=== PATIENT | male | born 1940 | race Caucasian/White ===

== ENCOUNTER 2019-04-04 07:11 | Emergency (ER) | payer MEDICARE, BC ==
[~2019-04-04] VITALS: Ht 177.8 cm; Wt 97.7 kg
--- NOTE | 2019-04-04 07:31 | ED General ---
General Stated Complaint: LOW BP History of Present Illness Date Seen by Provider: Apr 04, 2019 Time Seen by Provider: 07:36 Initial Comments Patient is a 78-year-old male with past medical history of symptomatic bradycardia and subsequent pacemaker placement 10 years ago in [place]. He also has hypertension. He does take antihypertensive medications and aspirin daily. He comes to the ER today stating that his pacemaker has been failing due to a low battery. He had an interrogation completed last week and according to the anna marie jones this was revealing for 1 failed lead, the atrial, as well as a failing battery. Patient has been having ongoing intermittent symptoms of dizziness, lightheadedness, nausea. He had been evaluated by his PCP for these and had plans to see the cardiothoracic surgeon in [place] this coming week to schedule a new pacemaker placement. The patient has however been having some symptoms described above. Today, he felt to nauseated, lightheaded, and dizzy to function so he came to the ER. He does not have chest pain or shortness of breath but he does feel easily fatigued. No vomiting. No additional illness or viral symptoms. Allergies and Home Medications Allergies Coded Allergies: Sulfa (Sulfonamide Antibiotics) (Verified Allergy, Unknown, 04/04/19) Patient Home Medication List Home Medication List Reviewed: Yes Review of Systems Review of Systems Constitutional: no symptoms reported Respiratory: no symptoms reported Cardiovascular: no symptoms reported Gastrointestinal: nausea Genitourinary: no symptoms reported Musculoskeletal: no symptoms reported Skin: no symptoms reported Psychiatric/Neurological: No Symptoms Reported All Other Systems Reviewed Negative Unless Noted: Yes Physical Exam Vital Signs Vital Signs - First Documented 04/04/19 07:15 Temp 36.7 Pulse 65 Resp 18 B/P (MAP) 150/84 (106) Pulse Ox 97 O2 Delivery Room Air Capillary Refill : Height, Weight, BMI Height: '" Weight: lbs. oz. 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 Norm as Tested Skin: Normal Color, Warm/Dry Progress/Results/Core Measures Suspected Sepsis SIRS Temperature: Pulse: Respiratory Rate: Laboratory Tests 04/04/19 07:40: White Blood Count 7.2 Blood Pressure / Mean: Laboratory Tests 04/04/19 07:40: Creatinine 0.86, Platelet Count 213 Results/Orders Lab Results Laboratory Tests Test 04/04/19 07:40 Range/Units White Blood Count 7.2 4.3-11.0 10^3/uL Red Blood Count 5.44 4.35-5.85 10^6/uL Hemoglobin 16.2 13.3-17.7 G/DL Hematocrit 48 40-54 % Mean Corpuscular Volume 88 80-99 FL Mean Corpuscular Hemoglobin 30 25-34 PG Mean Corpuscular Hemoglobin Concent 34 32-36 G/DL Red Cell Distribution Width 12.9 10.0-14.5 % Platelet Count 213 130-400 10^3/uL Mean Platelet Volume 11.2 H 7.4-10.4 FL Neutrophils (%) (Auto) 52 42-75 % Lymphocytes (%) (Auto) 41 12-44 % Monocytes (%) (Auto) 6 0-12 % Eosinophils (%) (Auto) 1 0-10 % Basophils (%) (Auto) 0 0-10 % Neutrophils # (Auto) 3.7 1.8-7.8 X 10^3 Lymphocytes # (Auto) 2.9 1.0-4.0 X 10^3 Monocytes # (Auto) 0.4 0.0-1.0 X 10^3 Eosinophils # (Auto) 0.1 0.0-0.3 10^3/uL Basophils # (Auto) 0.0 0.0-0.1 10^3/uL Sodium Level 140 135-145 MMOL/L Potassium Level 4.2 3.6-5.0 MMOL/L Chloride Level 102 98-107 MMOL/L Carbon Dioxide Level 26 21-32 MMOL/L Anion Gap 12 5-14 MMOL/L Blood Urea Nitrogen 13 7-18 MG/DL Creatinine 0.86 0.60-1.30 MG/DL Estimat Glomerular Filtration Rate > 60 BUN/Creatinine Ratio 15 Glucose Level 126 H 70-105 MG/DL Calcium Level 9.2 8.5-10.1 MG/DL Troponin I < 0.30 <0.30 NG/ML Pro-B-Type Natriuretic Peptide 844.6 H <75.0 PG/ML My Orders Orders - PASCUALKEM Remy DO Ed Iv/Invasive Line Start (04/04/19 07:31) Cbc With Automated Diff (04/04/19 07:31) Basic Metabolic Panel (04/04/19 07:31) Troponin I Fs (04/04/19 07:31) Probnp Fs (04/04/19 07:31) Ekg Tracing (04/04/19 07:31) Chest 1 View Ap/Pa Only (04/04/19 07:31) Ns Iv 500 Ml (Sodium Chloride 0.9%) (04/04/19 08:15) Ondansetron Injection (Zofran Injectio (04/04/19 08:15) Medications Given in ED Current Medications Medications Dose Ordered Sig/Valeria Route Start Time Stop Time Status Last Admin Dose Admin Ondansetron HCl 4 mg ONCE ONCE IVP 04/04/19 08:15 04/04/19 08:17 DC 04/04/19 08:18 4 MG Vital Signs/I&O 04/04/19 04/04/19 07:15 09:05 Temp 36.7 36.7 Pulse 65 66 Resp 18 18 B/P (MAP) 150/84 (106) 129/74 (106) Pulse Ox 97 97 O2 Delivery Room Air Room Air Capillary Refill : Progress Note : Time: 07:45 Progress Note Patient is seen and examined. Currently, no chest pain. EKG is revealing for herbert tricular paced rhythm with rate of 65. Patient complains of nausea. No shortness of breath or palpitations. Patient just underwent pacemaker interrogation last week and reportedly has failing lead as well as failing battery. He is primarily followed at [facility] by cardiology and CT surgery. Will call to request transfer to that facility both for continuity of care and for need of increased level of service. 08:15: Patient accepted for transfer to [facility]. Labs reviewed and without acute findings. Accepting physician is Dr. Graves. Room assignment and nursing report pending. Patient to be transferred via local EMS. 09:15: Patient transferred to [facility]. No acute events during the ED course. Feeling improved prior to transfer. Vitals remain stable. ECG Initial ECG Impression Date: Apr 04, 2019 Initial ECG Impression Time: 07:20 Initial ECG Rate: 65 Departure Impression Primary Impression: Dizziness Disposition: 02 XFER SHT-TRM HOSP Condition: Stable Transfer Transfer Reason: Exceeds level of care Time Spoke to Accepting Phy: 08:05 Transfer Progress Notes Patient accepted for transfer to [facility]. Accepting physician is Dr. Graves Transfer Time: 09:15 Transfer Facility: [place], [place] Method of Transfer: EMS Departure-Patient Inst. Referrals: SELF,JUNITO MORENO (PCP/Family) Primary Care Physician Patient Instructions: Dizziness, Nonvertigo, (DC) KEM GARNER DO Apr 04, 2019 07:31
[2019-04-04 07:52] LABS: BASOPHILS % (AUTO) 0 % (0-10); EOSINOPHILS % (AUTO) 1 % (0-10); HEMATOCRIT 48 % (40-54); HEMOGLOBIN 16.2 G/DL (13.3-17.7); LYMPHOCYTES % (AUTO) 41 % (12-44); MEAN CORPUSCULAR HEMOGLOBIN 30 PG (25-34); MEAN CORPUSCULAR HGB CONC 34 G/DL (32-36); MEAN CORPUSCULAR VOLUME 88 FL (80-99); MEAN PLATELET VOLUME 11.2 FL (7.4-10.4); MONOCYTES % (AUTO) 6 % (0-12); NEUTROPHILS % (AUTO) 52 % (42-75); PLATELET COUNT 213 10^3/uL (130-400); RED CELL DISTRIBUTION WIDTH 12.9 % (10.0-14.5); WHITE BLOOD COUNT 7.2 10^3/uL (4.3-11.0)
[2019-04-04 07:53] LABS: EOSINOPHILS # (AUTO) 0.1 10^3/uL (0.0-0.3); LYMPHOCYTES # (AUTO) 2.9 X 10^3 (1.0-4.0); MONOCYTES # (AUTO) 0.4 X 10^3 (0.0-1.0); NEUTROPHILS # (AUTO) 3.7 X 10^3 (1.8-7.8)
[2019-04-04 08:09] LABS: BUN/CREATININE RATIO 15; CALCIUM 9.2 MG/DL (8.5-10.1); CARBON DIOXIDE 26 MMOL/L (21-32); CHLORIDE 102 MMOL/L (98-107); CREATININE SERUM 0.86 MG/DL (0.60-1.30); GFR ESTIMATED > 60; GLUCOSE 126 MG/DL (70-105); POTASSIUM 4.2 MMOL/L (3.6-5.0); SODIUM 140 MMOL/L (135-145)
[2019-04-04] MEDS ORDERED: NS IV 500 ML 500 ML IV SCH (08:15)
[2019-04-04] MEDS ORDERED: ONDANSETRON 4 MG/2 ML (SDV) Z0FRAN IVP ONE (08:15)
--- NOTE | 2019-04-04 08:45 | Diagnostic Imaging Report ---
INDICATION: Dizziness and nausea. Near syncope. FINDINGS: Pacemaker device is present. Heart size appropriate without evidence of current failure. There is no focal alveolar infiltrate or consolidation. There is no effusion. There is no pneumothorax. No acute or suspicious osseous abnormalities are evident. IMPRESSION: 1. No radiographic evidence of an acute cardiopulmonary process. Dictated by: Dictated on workstation # [id number]
[2019-04-04 09:05] VITALS: BP 129/74
== END 2019-04-04 09:05 | disposition short-term general hospital (02) ==
LOC: ER FS 07:13
DX: R42 Dizziness and giddiness (principal); I10 Essential (primary) hypertension; Z88.2 Allergy status to sulfonamides; Z95.0 Presence of cardiac pacemaker; Z79.82 Long term (current) use of aspirin
CPT/HCPCS: 36415; 71045; 80048; 83880; 84484; 85025; 93005; 96374

== ENCOUNTER 2019-05-10 11:49 | Emergency (ER) | payer MEDICARE ==
--- OUTSIDE RECORDS SUMMARY | 2019-05-10 11:55 | XMS REPORT | Continuity of Care Document ---
Author Organization Unknown Address Unknown Phone Unavailable Allergies Active Description Code Type Severity Reaction Onset Reported/Identified Relationship to Patient Clinical Status Yes Sulfa (Sulfonamide Antibiotics) U92449 0491 Drug Allergy Unknown N/A 020 Medications There is no data. Problems Date Dx Coded Attending Type Code Diagnosis Diagnosed By 04/04/2019 GARNER KEE ROSALESIAN L Ot I10 ESSENTIAL (PRIMARY) HYPERTENSION 04/04/2019 NAYLOR DO KEM L Ot R42 DIZZINESS AND GIDDINESS 04/04/2019 [facility] KEM L Ot Z79.82 SENIOR LIVING (CURRENT) USE OF ASPIRIN 04/04/2019 NAYLOR DO KEM L Ot Z88 .2 ALLERGY STATUS TO SULFONAMIDES STATUS 04/04/2019 [facility] KEM L Ot Z95 .0 PRESENCE OF CARDIAC PACEMAKER 04/09/2019 NAYLOR DO KEM L Ot I10 ESSENTIAL (PRIMARY) HYPERTENSION 04/09/2019 NAYLOR , KEM L Ot R42 DIZZINESS AND GIDDINESS 04/09/2019 NAYLOR DO KEM L Ot Z79.82 SENIOR LIVING (CURRENT) USE OF ASPIRIN 04/09/2019 NAYLOR DO KEM L Ot Z88 .2 ALLERGY STATUS TO SULFONAMIDES STATUS 04/09/2019 NAYLOR DO KEM L Ot Z95 .0 PRESENCE OF CARDIAC PACEMAKER 04/11/2019 NAYLOR DO KEM L Ot I10 ESSENTIAL (PRIMARY) HYPERTENSION 04/11/2019 NAYLOR DO KEM L Ot R42 DIZZINESS AND GIDDINESS 04/11/2019 [facility] KEM L Ot Z79.82 SENIOR LIVING (CURRENT) USE OF ASPIRIN 04/11/2019 NAYLOR DO KEM L Ot Z88 .2 ALLERGY STATUS TO SULFONAMIDES STATUS 04/11/2019 [facility] KEM L Ot Z95 .0 PRESENCE OF CARDIAC PACEMAKER Procedures There is no data. Results Test Result Range CMP - 07/22/18 08:02 GLUCOSE 92 mg/dL 65-99 UREA NITROGEN (BUN) 14 mg/dL 7-25 CREATININE 0.80 mg/dL 0.70-1.18 eGFR NON-AFR. [place] 86 mL/min/1.73m2 > OR = 60 eGFR 99 mL/min/1.73m2 > OR = 60 BUN/CREATININE RATIO NOT APPLICABLE (calc) 6-22 SODIUM 142 mmol/L 135-146 POTASSIUM 4.6 mmol/L 3.5-5.3 CHLORIDE 106 mmol/L 98-110 CARBON DIOXIDE 28 mmol/L 20-32 CALCIUM 9.5 mg/dL 8.6-10.3 PROTEIN, TOTAL 6.9 g/dL 6.1-8.1 ALBUMIN 4.3 g/dL 3.6-5.1 GLOBULIN 2.6 g/dL (calc) 1.9-3.7 ALBUMIN/GLOBULIN RATIO 1.7 (calc) 1.0-2. 5 BILIRUBIN, TOTAL 0.6 mg/dL 0.2-1.2 ALKALINE PHOSPHATASE 57 U/L 40-115 AST 21 U/L 10-35 ALT 16 U/L - TSH - 07/22/18 08:02 TSH 1.21 mIU/L 0.40-4.50 CMP - 11/26/18 09:53 GLUCOSE 94 mg/dL 65-99 UREA NITROGEN (BUN) 14 mg/dL 7-25 CREATININE 0.77 mg/dL 0.70-1.18 eGFR NON-AFR. [place] 86 mL/min/1.73m2 > OR = 60 eGFR 100 mL/min/1.73m2 > OR = 60 BUN/CREATININE RATIO NOT APPLICABLE (calc) 6-22 SODIUM 138 mmol/L 135-146 POTASSIUM 4.4 mmol/L 3.5-5.3 CHLORIDE 102 mmol/L 98-110 CARBON DIOXIDE 28 mmol/L 20-32 CALCIUM 9.4 mg/dL 8.6-10.3 PROTEIN, TOTAL 6.6 g/dL 6.1-8.1 ALBUMIN 4.0 g/dL 3.6-5.1 GLOBULIN 2.6 g/dL (calc) 1.9-3.7 ALBUMIN/GLOBULIN RATIO 1.5 (calc) 1.0-2. 5 BILIRUBIN, TOTAL 0.5 mg/dL 0.2-1.2 ALKALINE PHOSPHATASE 59 U/L 40-115 AST 24 U/L 10-35 ALT 23 U/L 9-46 CBC - 11/26/18 09:53 WHITE BLOOD CELL COUNT 6.7 Thousand/uL 3 .8-10.8 RED BLOOD CELL COUNT 5.22 Million/uL 4.2 0-5.80 HEMOGLOBIN 15.6 g/dL 13.2-17.1 HEMATOCRIT 46.5 % 38.5-50.0 MCV 89.1 fL 80.0-100.0 MCH 29.9 pg 27.0-33.0 MCHC 33.5 g/dL 32.0-36.0 RDW 12.6 % 11.0-15.0 PLATELET COUNT 234 Thousand/uL 140-400 MPV 10.8 fL 7.5-12.5 ABSOLUTE NEUTROPHILS 4127 cells/uL 1500- 7800 ABSOLUTE LYMPHOCYTES 1977 cells/uL 850-3 900 ABSOLUTE MONOCYTES 516 cells/uL 200-950 ABSOLUTE EOSINOPHILS 40 cells/uL 15-500 ABSOLUTE BASOPHILS 40 cells/uL 0-200 NEUTROPHILS 61.6 % NRG LYMPHOCYTES 29.5 % NRG MONOCYTES 7.7 % NRG EOSINOPHILS 0.6 % NRG BASOPHILS 0.6 % NRG VITAMIN B12 - 11/26/18 09:53 VITAMIN B12 953 pg/mL 200-1100 TROPONIN I - 11/26/18 09:53 TROPONIN I <0.01 ng/mL < OR = 0.05 CBC - 01/28/19 08:12 WHITE BLOOD CELL COUNT 6.2 Thousand/uL 3 .8-10.8 RED BLOOD CELL COUNT 5.50 Million/uL 4.2 0-5.80 HEMOGLOBIN 16.5 g/dL 13.2-17.1 HEMATOCRIT 49.4 % 38.5-50.0 MCV 89.8 fL 80.0-100.0 MCH 30.0 pg 27.0-33.0 MCHC 33.4 g/dL 32.0-36.0 RDW 12.5 % 11.0-15.0 PLATELET COUNT 219 Thousand/uL 140-400 MPV 11.1 fL 7.5-12.5 ABSOLUTE NEUTROPHILS 2939 cells/uL 1500- 7800 ABSOLUTE LYMPHOCYTES 2691 cells/uL 850-3 900 ABSOLUTE MONOCYTES 465 cells/uL 200-950 ABSOLUTE EOSINOPHILS 62 cells/uL 15-500 ABSOLUTE BASOPHILS 43 cells/uL 0-200 NEUTROPHILS 47.4 % NRG LYMPHOCYTES 43.4 % NRG MONOCYTES 7.5 % NRG EOSINOPHILS 1.0 % NRG BASOPHILS 0.7 % NRG VITAMIN B12 - 01/28/19 08:12 VITAMIN B12 1056 pg/mL 200-1100 VITAMIN D, 25-H - 02/03/19 11:43 VITAMIN D,25-OH,TOTAL,IA 58 ng/mL 30-10 0 Complete blood count (CBC) with automate d white blood cell (WBC) differential - 04/04/19 07:40 Blood leukocytes automated count (number/volume) 7.2 10*3/uL 4.3-11.0 Blood erythrocytes automated count (number/volume) 5.44 10*6/uL 4.35-5.85 Venous blood hemoglobin measurement (mass/volume) 16.2 g/dL 13.3-17.7 Blood hematocrit (volume fraction) 48 % 40-54 Automated erythrocyte mean corpuscular volume 88 [ foz_us] 80-99 Automated erythrocyte mean corpuscular h emoglobin (mass per erythrocyte) 30 pg 25-34 Automated erythrocyte mean corpuscular h emoglobin concentration measurement (mass/volume) 34 g/dL 32-36 Automated erythrocyte distribution width ratio 12. 9 % 10.0- 14.5 Automated blood platelet count (count/volume) 213 10*3/uL 130-400 Automated blood platelet mean volume measurement 11.2 [foz_us] 7.4-10.4 Automated blood neutrophils/100 leukocytes 52 % 42-75 Automated blood lymphocytes/100 leukocytes 41 % 12-44 Blood monocytes/100 leukocytes 6 % 0-12 Automated blood eosinophils/100 leukocytes 1 % 0-10 Automated blood basophils/100 leukocytes 0 % 0-10 Blood neutrophils automated count (number/volume) 3.7 10*3 1.8-7.8 Blood lymphocytes automated count (number/volume) 2.9 10*3 1.0-4.0 Blood monocytes automated count (number/volume) 0. 4 10*3 0.0-1.0 Automated eosinophil count 0.1 10*3/uL 0 .0-0.3 Automated blood basophil count (count/volume) 0.0 10*3/uL 0.0-0.1 Whole blood basic metabolic panel - 03/20 08/06 07:40 Serum or plasma sodium measurement (moles/volume) 140 mmol/L 135-145 Serum or plasma potassium measurement (moles/volume) 4.2 mmol/L 3.6-5.0 Serum or plasma chloride measurement (moles/volume) 102 mmol/L 98-107 Carbon dioxide 26 mmol/L 21-32 Serum or plasma anion gap determination (moles/volume) 12 mmol/L 5-14 Serum or plasma urea nitrogen measurement (mass/volume ) 13 mg/dL 7-18 Serum or plasma creatinine measurement (mass/volume) 0.86 mg/dL 0.60-1.30 Serum or plasma urea nitrogen/creatinine mass ratio 15 NRG Serum or plasma creatinine measurement w ith calculation of estimated glomerular filtration rate > NRG Serum or plasma glucose measurement (mass/volume) 126 mg/dL 70-105 Serum or plasma calcium measurement (mass/volume) 9.2 mg/dL 8.5-10.1 TROPONIN I FS - 04/04/19 07:40 TROPONIN I FS < 0.30 <0.30 PROBNP FS 04/04/19 07:40 PROBNP FS 844.6 pg/mL <75.0 Encounters ACCT No. Visit Date/Time Discharge Status Pt. Type Provider Facility Loc./Unit Complaint [id number] 02/03/2019 09:30:00 02/03/2019 23:59: 59 CLS Outpatient [facility] [id number] 02/03/2019 09:30:00 Document Registration [id number] 01/28/2019 07:45:00 Document Registration [id number] 11/26/2018 08:45:00 Document Registration [id number] 07/22/2018 08:15:00 Document Registration [id number] 05/08/2015 13:17:02 ACT Unknown [id number] 04/04/2019 07:13:00 020 09:05:00 DIS Emergency KEM GARNER DO [facility] ER FS LOW BP
--- NOTE | 2019-05-10 12:13 | ED Abdominal Pain ---
General Chief Complaint: - Urinary Stated Complaint: ELEVATED BP Nursing Triage Note: Pain on R flank started 4 days ago. Has taken tylenol and ibuprofen for pain. Pain is currently rated at 5/10. Has hx of kidney stones. Also having high blood pressure at home. Was 203/111 prior to arrival. Sepsis Screen: No Definite Risk Source of Information: Patient Exam Limitations: No Limitations History of Present Illness Date Seen by Provider: May 10, 2019 Time Seen by Provider: 11:56 Initial Comments 78 yr old male with R flank pain for 4 days and has hx of renal stones. Pt has taken tylenol and motrin for pain. Pt has HBP and was hypertensive on admission. No chest pain or SOB and has second pacemaker for arrhythmia. Pt denies GI or PUL dx. Pt has given informed consent for diagnostic and therapeutic care. Last renal stone was years ago. Stopped smoking 40 yrs ago. Timing/Duration: 4-5 Days Severity/Quality: Moderate, Cramping, Sharp Location: RLQ, Flank Radiation: Back Activities at Onset: None Modifying Factors: Improves With Analgesics, Improves With Lying down, Improves With Resting, Improves With Urinating Associated Symptoms: Back Pain, Nausea/Vomiting Allergies and Home Medications Allergies Coded Allergies: Sulfa (Sulfonamide Antibiotics) (Verified Allergy, Unknown, 04/04/19) Patient Home Medication List Home Medication List Reviewed: Yes (no meds but will follow up with Dr Price and use ibuprofenfor pain,hydr) Review of Systems Review of Systems Constitutional: malaise, weakness EENTM: No Symptoms Reported Respiratory: No Symptoms Reported Cardiovascular: Irregular Heart Rate (has a pacemaker) Gastrointestinal: Abdominal Pain, Nausea Genitourinary: Flank Pain, Other (hx of renal stones) Musculoskeletal: back pain, muscle pain, muscle stiffness Skin: lesions (seborrheic changes left jain) Psychiatric/Neurological: Anxiety Endocrine: No Symptoms Reported Past Vybrtrq-Tsssjk-Dopfbe Hx Past Med/Social Hx: Reviewed Nursing Past Med/Soc Hx Patient Social History Alcohol Use: Denies Use Recreational Drug Use: No Smoking Status: Former Smoker Former Smoker, Quit: Feb 17, 1978 2nd Hand Smoke Exposure: No Recent Foreign Travel: No Contact w/Someone Who Travel: No Recent Infectious Disease Expo: No Recent Hopitalizations: No Seasonal Allergies Seasonal Allergies: Yes Past Medical History Surgeries: Yes Pacemaker, Transurethral Resection Respiratory: Yes Asthma Cardiac: Yes (Sick sinus syndrome) High Cholesterol, Hypertension, Irregular Heartbeat Neurological: No Genitourinary: Yes Benign Prostatic Hyperpl Gastrointestinal: No Musculoskeletal: No Endocrine: Yes Hypothyroidsim HEENT: No Cancer: No Psychosocial: No Integumentary: No Blood Disorders: No Physical Exam Vital Signs Vital Signs - First Documented 05/10/19 11:58 Temp 36.3 Pulse 63 Resp 16 B/P (MAP) 177/92 (120) Pulse Ox 96 Capillary Refill : Less Than 3 Seconds Height/Weight/BMI Height: '" Weight: lbs. oz. 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, no motor/sensory deficits, normal mood/affect, oriented x 3 Skin: other (seborrheic keratosis left jain) Progress/Results/Core Measures Results/Orders Lab Results Laboratory Tests Test 05/10/19 12:08 05/10/19 12:10 Range/Units Urine Color YELLOW Urine Clarity CLEAR Urine pH 5.5 5-9 Urine Specific [place] 1.020 1.016-1.022 Urine Protein NEGATIVE NEGATIVE Urine Glucose (UA) NEGATIVE NEGATIVE Urine Ketones NEGATIVE NEGATIVE Urine Nitrite NEGATIVE NEGATIVE Urine Bilirubin NEGATIVE NEGATIVE Urine Urobilinogen 0.2 < = 1.0 MG/DL Urine Leukocyte Esterase NEGATIVE NEGATIVE Urine RBC (Auto) TRACE H NEGATIVE Urine RBC RARE /HPF Urine WBC NONE /HPF Urine Crystals NONE /LPF Urine Bacteria NONE /HPF Urine Casts NONE /LPF Urine Mucus NEGATIVE /LPF Urine Culture Indicated NO White Blood Count 7.3 4.3-11.0 10^3/uL Red Blood Count 5.40 4.35-5.85 10^6/uL Hemoglobin 16.1 13.3-17.7 G/DL Hematocrit 47 40-54 % Mean Corpuscular Volume 87 80-99 FL Mean Corpuscular Hemoglobin 30 25-34 PG Mean Corpuscular Hemoglobin Concent 34 32-36 G/DL Red Cell Distribution Width 12.8 10.0-14.5 % Platelet Count 225 130-400 10^3/uL Mean Platelet Volume 10.6 H 7.4-10.4 FL Neutrophils (%) (Auto) 49 42-75 % Lymphocytes (%) (Auto) 43 12-44 % Monocytes (%) (Auto) 6 0-12 % Eosinophils (%) (Auto) 1 0-10 % Basophils (%) (Auto) 1 0-10 % Neutrophils # (Auto) 3.6 1.8-7.8 X 10^3 Lymphocytes # (Auto) 3.2 1.0-4.0 X 10^3 Monocytes # (Auto) 0.5 0.0-1.0 X 10^3 Eosinophils # (Auto) 0.1 0.0-0.3 10^3/uL Basophils # (Auto) 0.0 0.0-0.1 10^3/uL Neutrophils % (Manual) 36 % Lymphocytes % (Manual) 46 % Monocytes % (Manual) 13 % Eosinophils % (Manual) 2 % Basophils % (Manual) 1 % Band Neutrophils 2 % Blood Morphology Comment NORMAL Sodium Level 137 135-145 MMOL/L Potassium Level 4.3 3.6-5.0 MMOL/L Chloride Level 99 98-107 MMOL/L Carbon Dioxide Level 27 21-32 MMOL/L Anion Gap 11 5-14 MMOL/L Blood Urea Nitrogen 11 7-18 MG/DL Creatinine 0.70 0.60-1.30 MG/DL Estimat Glomerular Filtration Rate > 60 BUN/Creatinine Ratio 16 Glucose Level 116 H 70-105 MG/DL Calcium Level 9.4 8.5-10.1 MG/DL Corrected Calcium 9.1 8.5-10.1 MG/DL Total Bilirubin 0.3 0.1-1.0 MG/DL Aspartate Amino Transf (AST/SGOT) 27 5-34 U/L Alanine Aminotransferase (ALT/SGPT) 25 0-55 U/L Alkaline Phosphatase 63 40-136 U/L Total Protein 7.5 6.4-8.2 GM/DL Albumin 4.4 3.2-4.5 GM/DL My Tc Montez - ISLVIA VILCHIS DO Urinalysis (05/10/19 12:02) Cbc And Manual Diff (05/10/19 12:02) Comprehensive Metabolic Panel (05/10/19 12:02) Ct Abd/Pelvis Wo(Kidney Stone) (05/10/19 13:08) Vital Signs/I&O 05/10/19 11:58 Temp 36.3 Pulse 63 Resp 16 B/P (MAP) 177/92 (120) Pulse Ox 96 Blood Pressure Mean: 120 Progress Progress Note : Time: 12:19 Progress Note Pt resting and waiting for labs. If hematuria will proceed to CT abd stone pr otocol. FINDINGS: Limited views of the lower thorax show pacemaker leads. The liver is normal without focal lesion. There is no biliary ductal dilation. Gallbladder is normal. Pancreas is normal. Spleen is normal. Adrenal glands are normal. The kidneys are normal. There is no hydronephrosis. Urinary bladder is normal. There are no renal or ureteral stones. Visualized bowel is normal in caliber without obstruction or inflammation. No free fluid or air. No abdominal or pelvic lymphadenopathy. Aorta is normal in caliber without aneurysm. There are no suspicious osseus lesions. IMPRESSION: No acute abnormality in the abdomen or pelvis. No renal or ureteral stones. Pt will follow with Dr Price and moshe. Departure Impression Primary Impression: Ureteral calculi Additional Impressions: Pacemaker Flank pain Hypertension Disposition: 01 HOME, SELF-CARE Condition: Improved Departure-Patient Inst. Decision time for Depature: 13:59 Referrals: JUNITO PRICE MD (PCP/Family) Primary Care Physician Patient Instructions: High Blood Pressure (DC), Flank Pain (DC) Add. Discharge Instructions: Pt has flank pain consistent with ureteral sand and needs to hydrate. Pt will follow up with Dr Price. Pthas elevated BP and will follow up with Dr Price. All discharge instructions reviewed with patient and/or family. Voiced understanding. Copy Copies To 1: JUNITO PRICE MD, ANTHONY H DO May 10, 2019 12:13
[2019-05-10 12:27] LABS: BILIRUBIN,URINE NEGATIVE (NEGATIVE); CLARITY,URINE CLEAR; COLOR,URINE YELLOW; GLUCOSE, URINE (UA) NEGATIVE (NEGATIVE); KETONES,URINE NEGATIVE (NEGATIVE); LEUKOCYTE ESTERASE ,URINE NEGATIVE (NEGATIVE); NITRITE,URINE NEGATIVE (NEGATIVE); PH,URINE 5.5 (5-9); PROTEIN,URINE NEGATIVE (NEGATIVE); RBC,URINE RARE /HPF
[2019-05-10 12:28] LABS: BASOPHILS % (AUTO) 1 % (0-10); EOSINOPHILS # (AUTO) 0.1 10^3/uL (0.0-0.3); EOSINOPHILS % (AUTO) 1 % (0-10); HEMATOCRIT 47 % (40-54); HEMOGLOBIN 16.1 G/DL (13.3-17.7); LYMPHOCYTES # (AUTO) 3.2 X 10^3 (1.0-4.0); LYMPHOCYTES % (AUTO) 43 % (12-44); MEAN CORPUSCULAR HEMOGLOBIN 30 PG (25-34); MEAN CORPUSCULAR HGB CONC 34 G/DL (32-36); MEAN CORPUSCULAR VOLUME 87 FL (80-99); MEAN PLATELET VOLUME 10.6 FL (7.4-10.4); MONOCYTES # (AUTO) 0.5 X 10^3 (0.0-1.0); MONOCYTES % (AUTO) 6 % (0-12); NEUTROPHILS # (AUTO) 3.6 X 10^3 (1.8-7.8); NEUTROPHILS % (AUTO) 49 % (42-75); PLATELET COUNT 225 10^3/uL (130-400); RED CELL DISTRIBUTION WIDTH 12.8 % (10.0-14.5); WHITE BLOOD COUNT 7.3 10^3/uL (4.3-11.0)
[2019-05-10 12:45] LABS: BUN/CREATININE RATIO 16; CARBON DIOXIDE 27 MMOL/L (21-32); CHLORIDE 99 MMOL/L (98-107); GFR ESTIMATED > 60; POTASSIUM 4.3 MMOL/L (3.6-5.0); SODIUM 137 MMOL/L (135-145)
[2019-05-10 12:46] LABS: ALANINE AMINOTRANSFERASE 25 U/L (0-55); ALBUMIN 4.4 GM/DL (3.2-4.5); ALKALINE PHOSPHATASE 63 U/L (40-136); BILIRUBIN,TOTAL 0.3 MG/DL (0.1-1.0); CALCIUM 9.4 MG/DL (8.5-10.1); GLUCOSE 116 MG/DL (70-105); TOTAL PROTEIN 7.5 GM/DL (6.4-8.2)
[2019-05-10 12:54] LABS: BAND NEUTROPHILS 2 %; BASOPHILS % (MANUAL) 1 %; EOSINOPHILS % (MANUAL) 2 %; LYMPHOCYTES % (MANUAL) 46 %; MONOCYTES % (MANUAL) 13 %; NEUTROPHILS % (MANUAL) 36 %
[2019-05-10 12:55] LABS: RBC MORPH NORMAL
--- NOTE | 2019-05-10 13:27 | Diagnostic Imaging Report ---
EXAMINATION: CT Abdomen/Pelvis without contrast. TECHNIQUE: Multiple contiguous axial images were obtained through the abdomen and pelvis without the use of intravenous contrast. All CT scans use one or more of the following dose optimizing techniques: automated exposure control, MA and/or KvP adjustment based on a patient size and exam type, or iterative reconstruction. HISTORY: Right flank pain. COMPARISON: None available. FINDINGS: Limited views of the lower thorax show pacemaker leads. The liver is normal without focal lesion. There is no biliary ductal dilation. Gallbladder is normal. Pancreas is normal. Spleen is normal. Adrenal glands are normal. The kidneys are normal. There is no hydronephrosis. Urinary bladder is normal. There are no renal or ureteral stones. Visualized bowel is normal in caliber without obstruction or inflammation. No free fluid or air. No abdominal or pelvic lymphadenopathy. Aorta is normal in caliber without aneurysm. There are no suspicious osseus lesions. IMPRESSION: No acute abnormality in the abdomen or pelvis. No renal or ureteral stones. Dictated by: Dictated on workstation # [id number]
[2019-05-10 15:09] VITALS: BP 140/80
== END 2019-05-10 15:09 | disposition home or self-care (01) ==
LOC: EDUNIT# 11:49 → ER FS 11:51
DX: N20.1 Calculus of ureter (principal); I10 Essential (primary) hypertension; Z95.0 Presence of cardiac pacemaker; Z88.2 Allergy status to sulfonamides; Z87.891 Personal history of nicotine dependence; E78.00 Pure hypercholesterolemia, unspecified; N40.0 Benign prostatic hyperplasia without lower urinary tract symptoms; E03.9 Hypothyroidism, unspecified; L82.1 Other seborrheic keratosis
CPT/HCPCS: 36415; 74176; 80053; 81000; 85007; 85027

== ENCOUNTER 2019-05-31 15:54 | Emergency (ER) | payer MEDICARE ==
[~2019-05-31] VITALS: Ht 177.8 cm; Wt 100.0 kg
--- OUTSIDE RECORDS SUMMARY | 2019-05-31 16:02 | XMS REPORT | Continuity of Care Document ---
Author Organization Unknown Address Unknown Phone Unavailable Allergies Active Description Code Type Severity Reaction Onset Reported/Identified Relationship to Patient Clinical Status Yes Sulfa (Sulfonamide Antibiotics) [id number] 0491 Drug Allergy Unknown N/A 020 Medications There is no data. Problems Date Dx Coded Attending Type Code Diagnosis Diagnosed By 04/04/2019 [place] KEE ROSALESIAN L Ot I10 ESSENTIAL (PRIMARY) HYPERTENSION 04/04/2019 [facility] KEM L Ot R42 DIZZINESS AND GIDDINESS 04/04/2019 [facility] KEM L Ot Z79.82 ASSISTED (CURRENT) USE OF ASPIRIN 04/04/2019 [facility] KEM L Ot Z88 .2 ALLERGY STATUS TO SULFONAMIDES STATUS 04/04/2019 [facility] KEM L Ot Z95 .0 PRESENCE OF CARDIAC PACEMAKER 04/09/2019 [facility] KEM L Ot I10 ESSENTIAL (PRIMARY) HYPERTENSION 04/09/2019 [facility], KEM L Ot R42 DIZZINESS AND GIDDINESS 04/09/2019 [facility] KEM L Ot Z79.82 ASSISTED (CURRENT) USE OF ASPIRIN 04/09/2019 [facility] KEM L Ot Z88 .2 ALLERGY STATUS TO SULFONAMIDES STATUS 04/09/2019 [place] DO KEM L Ot Z95 .0 PRESENCE OF CARDIAC PACEMAKER 04/11/2019 [place] DO KEM L Ot I10 ESSENTIAL (PRIMARY) HYPERTENSION 04/11/2019 [facility], KEM L Ot R42 DIZZINESS AND GIDDINESS 04/11/2019 [facility] KEM L Ot Z79.82 ASSISTED (CURRENT) USE OF ASPIRIN 04/11/2019 [place] DO KEM L Ot Z88 .2 ALLERGY STATUS TO SULFONAMIDES STATUS 04/11/2019 [facility] KEM L Ot Z95 .0 PRESENCE OF CARDIAC PACEMAKER 05/16/2019 SILVIA VILCHIS DO Ot E03.9 HYPOTHYROIDISM, UNSPECIFIED 05/16/2019 SILVIA VILCHIS DO Ot E78.00 PURE HYPERCHOLESTEROLEMIA, UNSPECIFIED 05/16/2019 [facility], SILVIA Teran Ot I1 0 ESSENTIAL (PRIMARY) HYPERTENSION 05/16/2019 [facility], SILVIA Teran Ot L82.1 OTHER SEBORRHEIC KERATOSIS 05/16/2019 [facility], SILVIA Teran Ot N20.1 CALCULUS OF URETER 05/16/2019 [facility], SILVIA Teran Ot N40.0 BENIGN PROSTATIC HYPERPLASIA WITHOUT LOW 05/16/2019 [facility], SILVIA Teran Ot R10.9 UNSPECIFIED ABDOMINAL PAIN 05/16/2019 [facility], SILVIA Ot Z87.891 PERSONAL HISTORY OF NICOTINE DEPENDENCE 05/16/2019 [facility], SILVIA Ot Z88.2 ALLERGY STATUS TO SULFONAMIDES STATUS 05/16/2019 [facility] SILVIA Teran Ot Z95.0 PRESENCE OF CARDIAC PACEMAKER Procedures There is no data. Results Test Result Range [facility] - 07/22/18 08:02 GLUCOSE 92 mg/dL 65-99 UREA NITROGEN (BUN) 14 mg/dL 7-25 CREATININE 0.80 mg/dL 0.70-1.18 eGFR NON-AFR. [place] 86 mL/min/1.73m2 > OR = 60 eGFR [...] AST 21 U/L 10-35 ALT 16 U/L 9-46 TSH - 07/22/18 08:02 TSH 1.21 mIU/L 0.40-4.50 [facility] - 11/26/18 09:53 GLUCOSE 94 mg/dL 65-99 UREA NITROGEN (BUN) 14 mg/dL 7-25 CREATININE 0.77 mg/dL 0.70-1.18 eGFR NON-AFR. [place] 86 mL/min/1.73m2 > OR = 60 eGFR [...] I FS < 0.30 <0.30 PROBNP FS - 04/04/19 07:40 PROBNP FS 844.6 pg/mL <75.0 Complete urinalysis with reflex to cultu re - 05/10/19 12:08 Urine color determination YELLOW NRG Urine clarity determination CLEAR NR G Urine pH measurement by test strip 5.5 5-9 Specific gravity of urine by test strip 1.020 1.016-1.022 Urine protein assay by test strip, semi-quantitative NEGATIVE NEGATIVE Urine glucose detection by automated test strip NE GATIVE NEGATIVE Erythrocytes detection in urine sediment by light micr oscopy TRACE NEGATIVE Urine ketones detection by automated test strip NE GATIVE NEGATIVE Urine nitrite detection by test strip NEGATIVE NEGATIVE Urine total bilirubin detection by test strip NEGA TIVE NEGATIVE Urine urobilinogen measurement by automated test strip (mass/volume) 0.2 mg/dL < = 1.0 Urine leukocyte esterase detection by dipstick NEG ATIVE NEGATIVE Automated urine sediment erythrocyte cou nt by microscopy (number/high power field) RARE NRG Automated urine sediment leukocyte count by microscopy (number/high power field) NONE NRG Bacteria detection in urine sediment by light microsco py NONE NRG Crystals detection in urine sediment by light microsco py NONE NRG Casts detection in urine sediment by light microscopy NONE NRG Mucus detection in urine sediment by light microscopy NEGATIVE NRG Complete urinalysis with reflex to culture NO NRG Blood CBC with ordered manual differenti al panel - 05/10/19 12:10 Blood leukocytes automated count (number/volume) 7.3 10*3/uL 4.3-11.0 Blood erythrocytes automated count (number/volume) 5.40 10*6/uL 4.35-5.85 Venous blood hemoglobin measurement (mass/volume) 16.1 g/dL 13.3-17.7 Blood hematocrit (volume fraction) 47 % 40-54 Automated erythrocyte mean corpuscular volume 87 [ foz_us] 80-99 Automated erythrocyte mean corpuscular h emoglobin (mass per erythrocyte) 30 pg 25-34 Automated erythrocyte mean corpuscular h emoglobin concentration measurement (mass/volume) 34 g/dL 32-36 Automated erythrocyte distribution width ratio 12. 8 % 10.0- 14.5 Automated blood platelet count (count/volume) 225 10*3/uL 130-400 Automated blood platelet mean volume measurement 10.6 [foz_us] 7.4-10.4 Automated blood neutrophils/100 leukocytes 49 % 42-75 Automated blood lymphocytes/100 leukocytes 43 % 12-44 Blood monocytes/100 leukocytes 13 % NRG Automated blood eosinophils/100 leukocytes 1 % 0-10 Automated blood basophils/100 leukocytes 1 % 0-10 Blood neutrophils automated count (number/volume) 3.6 10*3 1.8-7.8 Blood lymphocytes automated count (number/volume) 3.2 10*3 1.0-4.0 Blood monocytes automated count (number/volume) 0. 5 10*3 0.0-1.0 Automated eosinophil count 0.1 10*3/uL 0 .0-0.3 Automated blood basophil count (count/volume) 0.0 10*3/uL 0.0-0.1 Manual blood segmented neutrophils/100 leukocytes 36 % NRG Blood band neutrophils/100 leukocytes 2 % NRG Manual blood lymphocytes/100 leukocytes 46 % NRG Manual eosinophils/100 leukocytes in nose 2 % NRG Manual blood basophils/100 leukocytes 1 % NRG Blood erythrocyte morphology finding identification NORMAL NR Comprehensive metabolic panel - 05/10/19 12:10 Serum or plasma sodium measurement (moles/volume) 137 mmol/L 135-145 Serum or plasma potassium measurement (moles/volume) 4.3 mmol/L 3.6-5.0 Serum or plasma chloride measurement (moles/volume) 99 mmol/L 98-107 Carbon dioxide 27 mmol/L 21-32 Serum or plasma anion gap determination (moles/volume) 11 mmol/L 5-14 Serum or plasma urea nitrogen measurement (mass/volume ) 11 mg/dL 7-18 Serum or plasma creatinine measurement (mass/volume) 0.70 mg/dL 0.60-1.30 Serum or plasma urea nitrogen/creatinine mass ratio 16 NRG Serum or plasma creatinine measurement w ith calculation of estimated glomerular filtration rate > NRG Serum or plasma glucose measurement (mass/volume) 116 mg/dL 70-105 Serum or plasma calcium measurement (mass/volume) 9.4 mg/dL 8.5-10.1 Serum or plasma total bilirubin measurement (mass/volu me) 0.3 mg/dL 0.1-1.0 Serum or plasma alkaline phosphatase gabbi surement (enzymatic activity/volume) 63 U/L 40-136 Serum or plasma aspartate aminotransfera se measurement (enzymatic activity/volume) 27 U/L 5-34 Serum or plasma alanine aminotransferase measurement (enzymatic activity/volume) 25 U/L 0-55 Serum or plasma protein measurement (mass/volume) 7.5 g/dL 6.4-8.2 Serum or plasma albumin measurement (mass/volume) 4.4 g/dL 3.2-4.5 CALCIUM CORRECTED 9.1 mg/dL 8.5-10.1 Encounters ACCT No. Visit Date/Time Discharge Status Pt. Type Provider Facility Loc./Unit Complaint [id number] 02/03/2019 09:30:00 02/03/2019 23:59: 59 CLS Outpatient [facility] AD[facility] DUARTE [id number] 02/03/2019 09:30:00 Document Registration [id number] 01/28/2019 07:45:00 Document Registration [id number] 11/26/2018 08:45:00 Document Registration [id number] 07/22/2018 08:15:00 Document Registration [id number] 05/08/2015 13:17:02 ACT Unknown [id number] 05/10/2019 11:51:00 020 15:09:00 DIS Outpatient SILVIA VILCHIS DO Via [facility] ER FS ELEVATED BP [id number] 04/04/2019 07:13:00 020 09:05:00 DIS Emergency KEM GARNER DO [facility] ER FS LOW BP [id number] 05/31/2019 15:57:[address] Emergency KEM MERCEDES MD [facility] ER FS HIGH BLOOD PRESSURE,LOWER BA CK PAIN
--- NOTE | 2019-05-31 16:10 | ED General ---
General Stated Complaint: HIGH BLOOD PRESSURE,LOWER BACK PAIN Source of Information: Patient, Old Records, RN Notes Reviewed Exam Limitations: No Limitations History of Present Illness Date Seen by Provider: May 31, 2019 Time Seen by Provider: 16:00 Initial Comments This patient is a 78-year-old male presents to the emerge from for blood pressure check. Patient states he monitor his blood pressure daily but today he noticed that his systolic blood pressure was 212. Indocin significantly high. Patient has no other complaints. Patient was recently seen in the emergency department for flank pain. The patient states that he does take lisinopril daily but his blood pressure never this time. Patient denies chest pain shortness of breath or any neurological complaints. We'll do medical evaluation treatment is needed Timing/Duration: 1-3 Hours Modifying Factors: worse with Cold Therapy, worse with Eating, worse with Immobilization, worse with Medication, worse with Movement, worse with Rest, worse with Other Associated Systoms: No Denies Symptoms, No Chest Pain, No Cough, No Diaphoresis, No Fever/Chills, No Headaches, No Loss of Appetite, No Malaise, No Nausea/Vomiting, No Rash, No Seizure, No Shortness of Air, No Syncope, No Weakness, No Other Allergies and Home Medications Allergies Coded Allergies: Sulfa (Sulfonamide Antibiotics) (Verified Allergy, Unknown, 04/04/19) Home Medications Amlodipine Besylate 10 Mg Tablet, 10 MG PO DAILY Prescribed by: KEM MERCEDES on 05/31/19 [id number] Patient Home Medication List Home Medication List Reviewed: Yes Review of Systems Review of Systems Constitutional: No no symptoms reported; see HPI; No chills, No diaphoresis, No dizziness, No fever, No malaise, No weakness, No weight gain, No weight loss, No other EENTM: No see HPI, No no symptoms reported, No ear discharge, No hearing loss, No ear pain, No blurred vision, No double vision, No eye pain, No tearing, No vision loss, No dental problems, No hoarseness, No mouth pain, No mouth swelling, No epistaxis, No nose congestion, No nose pain, No throat pain, No throat swelling, No other Respiratory: No no symptoms reported, No see HPI, No cough, No dyspnea on exertion, No hemoptysis, No orthopnea, No phlegm, No short of breath, No stridor, No wheezing, No other Cardiovascular: No no symptoms reported, No see HPI, No chest pain, No edema, No Hx of Intervention, No palpitations, No syncope, No vascular heart diseas, No other Gastrointestinal: No RUQ, No LUQ, No RLQ, No LLQ, No no symptoms reported, No see HPI, No abdominal pain, No constipation, No diarrhea, No dysphagia, No hematemesis, No heartburn, No jaundice, No loss of appetite, No melena, No nausea, No vomiting, No other Genitourinary: No no symptoms reported, No see HPI, No decreased output, No discharge, No dysuria, No frequency, No hematuria, No hesitancy, No incontinence, No nocturia, No pain, No other Musculoskeletal: No no symptoms reported, No see HPI, No back pain, No gout, No joint pain, No joint swelling, No muscle pain, No muscle stiffness, No muscle cramps, No muscle twitching, No muscle weakness, No neck pain, No other Skin: No no symptoms reported, No see HPI, No change in color, No change in hair/nails, No dryness, No hx of skin cancer, No lesions, No lumps, No pruritus, No rash, No other All Other Systems Reviewed Negative Unless Noted: Yes Past Qhtwtyc-Ohlnqo-Acddfl Hx Patient Social History Former Smoker, Quit: Feb 17, 1978 2nd Hand Smoke Exposure: No Recent Foreign Travel: No Contact w/Someone Who Travel: No Recent Hopitalizations: No Seasonal Allergies Seasonal Allergies: Yes Past Medical History Surgeries: Yes Pacemaker, Transurethral Resection Respiratory: Yes Asthma Cardiac: Yes (Sick sinus syndrome) High Cholesterol, Hypertension, Irregular Heartbeat Neurological: No Genitourinary: Yes Benign Prostatic Hyperpl Gastrointestinal: No Musculoskeletal: No Endocrine: Yes Hypothyroidsim HEENT: No Cancer: No Psychosocial: No Integumentary: No Blood Disorders: No Physical Exam Vital Signs Vital Signs - First Documented 05/31/19 16:00 Temp 36.3 Pulse 74 Resp 15 B/P (MAP) 210/112 (144) Pulse Ox 97 O2 Delivery Room Air Capillary Refill : Height, Weight, BMI Height: '" Weight: lbs. oz. kg; 30.00 BMI Method: General Appearance: No Apparent Distress, WD/WN Respiratory: Chest Non Tender, Lungs Clear, Normal Breath Sounds, No Accessory Muscle Use, No Respiratory Distress Cardiovascular: Regular Rate, Rhythm, No Edema, No Gallop, No JVD, No Murmur, Normal Peripheral Pulses Gastrointestinal: Normal Bowel Sounds, No Organomegaly, No Pulsatile Mass, Non Tender, Soft Neurologic/Psychiatric: Alert, Oriented x3, No Motor/Sensory Deficits, Normal Mood/Affect Progress/Results/Core Measures Suspected Sepsis SIRS Temperature: Pulse: Respiratory Rate: Laboratory Tests 05/31/19 16:20: White Blood Count 7.2 Blood Pressure / Mean: Laboratory Tests 05/31/19 16:20: Creatinine 0.64, Platelet Count 236, Total Bilirubin 0.3 Results/Orders Lab Results Laboratory Tests Test 05/31/19 16:20 05/31/19 16:23 Range/Units White Blood Count 7.2 4.3-11.0 10^3/uL Red Blood Count 5.30 4.35-5.85 10^6/uL Hemoglobin 15.7 13.3-17.7 G/DL Hematocrit 46 40-54 % Mean Corpuscular Volume 86 80-99 FL Mean Corpuscular Hemoglobin 30 25-34 PG Mean Corpuscular Hemoglobin Concent 34 32-36 G/DL Red Cell Distribution Width 12.7 10.0-14.5 % Platelet Count 236 130-400 10^3/uL Mean Platelet Volume 10.6 H 7.4-10.4 FL Neutrophils (%) (Auto) 49 42-75 % Lymphocytes (%) (Auto) 42 12-44 % Monocytes (%) (Auto) 8 0-12 % Eosinophils (%) (Auto) 1 0-10 % Basophils (%) (Auto) 1 0-10 % Neutrophils # (Auto) 3.5 1.8-7.8 X 10^3 Lymphocytes # (Auto) 3.0 1.0-4.0 X 10^3 Monocytes # (Auto) 0.6 0.0-1.0 X 10^3 Eosinophils # (Auto) 0.1 0.0-0.3 10^3/uL Basophils # (Auto) 0.0 0.0-0.1 10^3/uL Sodium Level 139 135-145 MMOL/L Potassium Level 4.1 3.6-5.0 MMOL/L Chloride Level 101 98-107 MMOL/L Carbon Dioxide Level 27 21-32 MMOL/L Anion Gap 11 5-14 MMOL/L Blood Urea Nitrogen 8 7-18 MG/DL Creatinine 0.64 0.60-1.30 MG/DL Estimat Glomerular Filtration Rate > 60 BUN/Creatinine Ratio 13 Glucose Level 111 H 70-105 MG/DL Calcium Level 9.4 8.5-10.1 MG/DL Corrected Calcium 9.1 8.5-10.1 MG/DL Total Bilirubin 0.3 0.1-1.0 MG/DL Aspartate Amino Transf (AST/SGOT) 21 5-34 U/L Alanine Aminotransferase (ALT/SGPT) 17 0-55 U/L Alkaline Phosphatase 67 40-136 U/L Total Protein 7.2 6.4-8.2 GM/DL Albumin 4.4 3.2-4.5 GM/DL Urine Color YELLOW Urine Clarity CLEAR Urine pH 6.5 5-9 Urine Specific Bivalve <=1.005 1.016-1.022 Urine Protein NEGATIVE NEGATIVE Urine Glucose (UA) NEGATIVE NEGATIVE Urine Ketones NEGATIVE NEGATIVE Urine Nitrite NEGATIVE NEGATIVE Urine Bilirubin NEGATIVE NEGATIVE Urine Urobilinogen 0.2 < = 1.0 MG/DL Urine Leukocyte Esterase NEGATIVE NEGATIVE Urine RBC (Auto) NEGATIVE NEGATIVE Urine RBC NONE /HPF Urine WBC NONE /HPF Urine Squamous Epithelial Cells RARE /HPF Urine Crystals NONE /LPF Urine Bacteria NEGATIVE /HPF Urine Casts NONE /LPF Urine Mucus NONE /LPF Urine Culture Indicated NO My Orders Orders - KEM MERCEDES MD Ed Iv/Invasive Line Start (05/31/19 16:06) Cbc With Automated Diff (05/31/19 16:06) Comprehensive Metabolic Panel (05/31/19 16:06) Urinalysis (05/31/19 16:06) Metoprolol Tartrate Injection (Lopressor (05/31/19 16:15) Medications Given in ED Current Medications Medications Dose Ordered Sig/Valeria Route Start Time Stop Time Status Last Admin Dose Admin Metoprolol Tartrate 5 mg ONCE ONCE IV 05/31/19 16:15 05/31/19 16:16 DC 05/31/19 16:22 5 MG Vital Signs/I&O 05/31/19 05/31/19 16:00 16:50 Temp 36.3 Pulse 74 Resp 15 B/P (MAP) 210/112 (144) 166/85 (112) Pulse Ox 97 O2 Delivery Room Air Capillary Refill : Progress Note : Time: 16:50 Progress Note Patient is much improved. Blood pressure 166/85 and continued to improve. Patient has no complaints at this time. Patient be discharged home shortly. New medication Norvasc 10 mg daily. Continue take her home lisinopril. Continue blood pressure log as described. Follow-up with PCP in 7 days for review and possible medication adjustments if needed. Departure Impression Primary Impression: Essential hypertension Disposition: 01 HOME, SELF-CARE Condition: Stable Departure-Patient Inst. Decision time for Depature: 16:51 Referrals: SELFJUNITO MD (PCP/Family) Primary Care Physician Patient Instructions: High Blood Pressure (DC), DASH Diet Add. Discharge Instructions: New medication Norvasc 10 mg daily. Continue take her home lisinopril. Continue blood pressure log as described. Follow-up with PCP in 7 days for review and possible medication adjustments if needed Scripts Amlodipine Besylate (Norvasc) 10 Mg Tablet 10 MG PO DAILY for 30 Days, #30 TAB 0 Refills Prov: KEM MERCEDES MD 05/31/19 KEM MERCEDES MD May 31, 2019 16:10
[2019-05-31] MEDS ORDERED: meTOprolol 5 MG/5 ML (LOPRESSOR) VIAL IV ONE (16:15)
--- NOTE | 2019-05-31 16:25 | NUR ---
This RN performed bilateral manual BP's while pt was sitting. Right arm- 208/102 Left arm- 202/100 Dr. Laurent notified.
[2019-05-31 16:37] LABS: HEMATOCRIT 46 % (40-54); HEMOGLOBIN 15.7 G/DL (13.3-17.7); MEAN CORPUSCULAR HEMOGLOBIN 30 PG (25-34); MEAN CORPUSCULAR HGB CONC 34 G/DL (32-36); MEAN CORPUSCULAR VOLUME 86 FL (80-99); MEAN PLATELET VOLUME 10.6 FL (7.4-10.4); PLATELET COUNT 236 10^3/uL (130-400); RED CELL DISTRIBUTION WIDTH 12.7 % (10.0-14.5); WHITE BLOOD COUNT 7.2 10^3/uL (4.3-11.0)
[2019-05-31 16:38] LABS: BASOPHILS % (AUTO) 1 % (0-10); EOSINOPHILS # (AUTO) 0.1 10^3/uL (0.0-0.3); EOSINOPHILS % (AUTO) 1 % (0-10); LYMPHOCYTES % (AUTO) 42 % (12-44); MONOCYTES # (AUTO) 0.6 X 10^3 (0.0-1.0); MONOCYTES % (AUTO) 8 % (0-12); NEUTROPHILS # (AUTO) 3.5 X 10^3 (1.8-7.8); NEUTROPHILS % (AUTO) 49 % (42-75)
[2019-05-31 16:42] LABS: CLARITY,URINE CLEAR; COLOR,URINE YELLOW; PH,URINE 6.5 (5-9)
[2019-05-31 16:43] LABS: BACTERIA,URINE NEGATIVE /HPF; BILIRUBIN,URINE NEGATIVE (NEGATIVE); GLUCOSE, URINE (UA) NEGATIVE (NEGATIVE); KETONES,URINE NEGATIVE (NEGATIVE); LEUKOCYTE ESTERASE ,URINE NEGATIVE (NEGATIVE); NITRITE,URINE NEGATIVE (NEGATIVE); PROTEIN,URINE NEGATIVE (NEGATIVE); SQUAMOUS EPITHELIAL CELL,UR RARE /HPF
[2019-05-31 16:50] VITALS: BP 166/85
[2019-05-31] MEDS ORDERED: AMLO10TA4 PO (16:52)
[2019-05-31 16:56] LABS: ALANINE AMINOTRANSFERASE 17 U/L (0-55); ALKALINE PHOSPHATASE 67 U/L (40-136); BILIRUBIN,TOTAL 0.3 MG/DL (0.1-1.0); BUN/CREATININE RATIO 13; CALCIUM 9.4 MG/DL (8.5-10.1); CARBON DIOXIDE 27 MMOL/L (21-32); CHLORIDE 101 MMOL/L (98-107); CREATININE SERUM 0.64 MG/DL (0.60-1.30); GFR ESTIMATED > 60; GLUCOSE 111 MG/DL (70-105); POTASSIUM 4.1 MMOL/L (3.6-5.0); SODIUM 139 MMOL/L (135-145); TOTAL PROTEIN 7.2 GM/DL (6.4-8.2)
[2019-05-31 16:57] LABS: ALBUMIN 4.4 GM/DL (3.2-4.5)
[2019-05-31 17:10] VITALS: BP 147/83
== END 2019-05-31 17:10 | disposition home or self-care (01) ==
LOC: EDUNIT# 15:54 → ER FS 15:57
DX: I10 Essential (primary) hypertension (principal); Z79.899 Other long term (current) drug therapy; Z88.2 Allergy status to sulfonamides
CPT/HCPCS: 36415; 80053; 81000; 85025

== ENCOUNTER → 2019-08-12 | Outpatient (CLI) | payer MEDICARE ==
[~2019-08-12] MED LIST: AMLO10TA4 PO; CATHETER FLUSH 10 ML SYR IV PRN
--- NOTE | 2019-08-12 14:25 | Diagnostic Imaging Report ---
EXAMINATION: Hepatobiliary scan with ejection fraction at 1117h. INDICATION: Abdominal pain This study was performed following administration of 5.2 mCi of Choletec and 8 ounces of ensure. There are no prior nuclear medicine or ultrasound examinations available for comparison. The CT abdomen/pelvis exam of 05/10/2019 failed to show any abnormality of the gallbladder. On this study there is uptake of the radiotracer by the gallbladder for 30 minutes. The would weigh against the diagnosis of acute cholecystitis. There is also extension of the radiotracer into the small bowel indicating that the common bile duct is not obstructed. Ejection fraction is 38.1% (normal greater than 35%). IMPRESSION: 1. There is no evidence for acute cholecystitis or for obstruction of the common bile duct. 2. The ejection fraction is at the low end of normal. Dictated by: Dictated on workstation # [id number]
== END ==
LOC: CARD 11:21
PROVIDERS: ATTEND Family Medicine
DX: R10.11 Right upper quadrant pain (principal)
CPT/HCPCS: 78227; A9537

== ENCOUNTER 2021-09-03 17:45 | Emergency (ER) | payer MEDICARE ==
[~2021-09-03] VITALS: Ht 177.8 cm; Wt 100.0 kg
[~2021-09-03 17:45] MED LIST changes: -CATHETER FLUSH 10 ML SYR IV PRN
[2021-09-03 18:00] VITALS: BP 155/76
--- NOTE | 2021-09-03 18:11 | ED General ---
General Chief Complaint: Bite-Animal/Human/Insect Stated Complaint: BITE ON FACE History of Present Illness Date Seen by Provider: Sep 03, 2021 Time Seen by Provider: 18:08 Initial Comments 80-year-old male is here with complaints of an insect bite to his right side forehead right above the eyebrow, which occurred yesterday. Patient awoke today in the morning and noticed that his left eyelid and left forehead above the eyebrow and the temporal region of his face was swollen with erythema. Patient is unsure if it is a spider bite or a bee sting but there is no stinger in the wound. Patient stated that he felt the bite and he knocked the insect away but did not get a chance to see it before it was flung into the grass. Denies shortness of breath, oral swelling, scratchy throat. Allergies and Home Medications Allergies Coded Allergies: Sulfa (Sulfonamide Antibiotics) (Verified Allergy, Unknown, 04/04/19) Patient Home Medication List Home Medication List Reviewed: Yes Amlodipine Besylate (Norvasc) 10 Mg Tablet, 10 MG PO DAILY Prescribed by: KEM MERCEDES on 05/31/191651 Amoxicillin/Potassium Clav (Augmentin 500-125 Tablet) 500 Mg-125 Mg Tablet, 1 EACH PO BID Prescribed by: QUOC DEY MD on 09/03/211856 Diphenhydramine HCl (Benadryl) 25 Mg Capsule, 25 MG PO BID Prescribed by: QUOC DEY MD on 09/03/211856 Famotidine (Pepcid) 20 Mg Tablet, 20 MG PO BID Prescribed by: QUOC DEY MD on 09/03/211856 Prednisone (Prednisone) 20 Mg Tab, 40 MG PO DAILY Prescribed by: QUOC DEY MD on 09/03/211856 Review of Systems Review of Systems Constitutional: no symptoms reported EENTM: other (facial swelling) Respiratory: no symptoms reported Cardiovascular: no symptoms reported Gastrointestinal: no symptoms reported Genitourinary: no symptoms reported Musculoskeletal: no symptoms reported Skin: no symptoms reported Psychiatric/Neurological: No Symptoms Reported Hematologic/Lymphatic: No Symptoms Reported Immunological/Allergic: no symptoms reported Past [place]aal-[place]jpy-[place] Hx Seasonal Allergies Seasonal Allergies: Yes Past Medical History Surgeries: Yes Pacemaker, Transurethral Resection Respiratory: Yes Asthma Cardiac: Yes (Sick sinus syndrome) High Cholesterol, Hypertension, Irregular Heartbeat Neurological: No Genitourinary: Yes Benign Prostatic Hyperpl Gastrointestinal: No Musculoskeletal: No Endocrine: Yes Hypothyroidsim HEENT: No Cancer: No Psychosocial: No Integumentary: No Blood Disorders: No Physical Exam Vital Signs Vital Signs - First Documented 09/03/21 18:00 Temp 36.5 Pulse 87 Resp 16 B/P (MAP) 155/76 (102) Pulse Ox 97 O2 Delivery Room Air Capillary Refill : Height, Weight, BMI Height: '" Weight: lbs. oz. kg; 31.00 BMI Method: General Appearance: No Apparent Distress, WD/WN Eyes: Left Eye Normal Inspection, Left Eye PERRL, Left Eye EOMI, Left Eye Lid Inflammation HEENT: PERRL/EOMI, Normal ENT Inspection, Pharynx Normal Neck: Full Range of Motion, Normal Inspection, Non Tender Respiratory: Lungs Clear, Normal Breath Sounds, No Accessory Muscle Use, No Respiratory Distress Neurologic/Psychiatric: Alert, Oriented x3, No Motor/Sensory Deficits, Normal Mood/Affect Skin: Normal Color Progress/Results/Core Measures Suspected Sepsis SIRS Temperature: Pulse: Respiratory Rate: Blood Pressure / Mean: Results/Orders My Orders Orders - QUOC DEY MD Diphenhydramine Tablet (Benadryl Tablet) (09/03/21 18:45) Famotidine Tablet (Pepcid Tablet) (09/03/21 18:45) Prednisone Tablet (Deltasone Tablet) (09/03/21 18:45) Prednisone Tablet (Deltasone Tablet) (09/03/21 18:45) Amoxicillin/Clavulanate Tablet (Augmenti (09/03/21 18:33) Medications Given in ED Current Medications Medications Dose Ordered Sig/Valeria Route Start Time Stop Time Status Last Admin Dose Admin Diphenhydramine HCl 25 mg ONCE ONCE PO 09/03/21 18:45 09/03/21 18:46 DC 09/03/21 18:50 25 MG Famotidine 20 mg ONCE ONCE PO 09/03/21 18:45 09/03/21 18:46 DC 09/03/21 18:50 20 MG Prednisone 10 mg ONCE ONCE PO 09/03/21 18:45 09/03/21 18:46 DC 09/03/21 18:50 10 MG Prednisone 50 mg ONCE ONCE PO 09/03/21 18:45 09/03/21 18:46 DC 09/03/21 18:50 50 MG Vital Signs/I&O 09/03/21 18:00 Temp 36.5 Pulse 87 Resp 16 B/P (MAP) 155/76 (102) Pulse Ox 97 O2 Delivery Room Air Capillary Refill : Progress Note : Progress Note 1. INSECT BITE TO FACE: - Pt is stable , speaking in clear sentences, stable vitals, not inrespiratory distress, with clear airway. - In ER cleaned area with alcohol wipe. Gave Benadryl 25mg/ Prednisone 60mg/ Pepcid 20mg/ Augmentin first tab STAT Benadryl 25mg bid for [address] taking thismedication Pepcid 20mg bid for 3 days Prednisone 40mg for 3 days Augmentin bid for 7 days Follow up with PCP within 3 to 5 days Epi-pen prescription given with instructions to use prn SOB/ wheezing only Return to ER if worsening Departure Impression Primary Impression: Insect bite of face with local reaction Qualified Codes: S00.86XA - Insect bite (nonvenomous) of other part of head, initial encounter; W57.XXXA - Bitten or stung by nonvenomous insect and other nonvenomous arthropods, initial encounter Disposition: 01 HOME, SELF-CARE Condition: Stable Departure-Patient Inst. Referrals: JUNITO MCGEE MD (PCP/Family) Primary Care Physician Patient Instructions: Insect Bites and Stings ED Add. Discharge Instructions: Benadryl 25mg bid for [address] taking thismedication Pepcid 20mg bid for 3 days Prednisone 40mg for 3 days Augmentin bid for 7 days Follow up with PCP within 3 to 5 days Epi-pen prescription given with instructions to use prn SOB/ wheezing only Return to ER if worsening All discharge instructions reviewed with patient and/or family. Voiced understanding. Scripts Amoxicillin/Potassium Clav (Augmentin 500-125 Tablet) 500 Mg-125 Mg Tablet 1 EACH PO BID for 7 Days, #14 TAB Prov: QUOC DEY MD 09/03/21 Famotidine (Pepcid) 20 Mg Tablet 20 MG PO BID for 3 Days, #6 TAB Prov: QUOC DEY MD 09/03/21 Prednisone (Prednisone) 20 Mg Tab 40 MG PO DAILY for 3 Days, #3 TAB Prov: QUOC DEY MD 09/03/21 Diphenhydramine HCl (Benadryl) 25 Mg Capsule 25 MG PO BID for 3 Days, #[address] while taking this medication Prov: QUOC DEY MD 09/03/21 QUOC DEY MD Sep 03, 2021 18:11
[2021-09-03] MEDS ORDERED: AUGMENTIN 875 MG TAB (AMOXICILLIN/CLAVULANATE) PO STA (18:33)
[2021-09-03] MEDS ORDERED: predniSONE 20 MG TAB PO ONE (18:45)
[2021-09-03] MEDS ORDERED: diphenhydrAMINE 25 MG TAB (BENADRYL) PO ONE (18:45)
[2021-09-03] MEDS ORDERED: FAMOTIDINE 20 MG (PEPCID) TABLET PO ONE (18:45)
[2021-09-03] MEDS ORDERED: predniSONE 10 MG TAB PO ONE (18:45)
[2021-09-03] MEDS ORDERED: DIPH25CA79 PO (18:57)
[2021-09-03] MEDS ORDERED: AMOX-355 PO (18:57)
[2021-09-03] MEDS ORDERED: PRD20T PO (18:57)
[2021-09-03] MEDS ORDERED: FAMO-119 PO (18:57)
== END 2021-09-03 19:06 | disposition home or self-care (01) ==
LOC: EDUNIT# 17:45 → ER FS 17:45
DX: S00.86XA Insect bite (nonvenomous) of other part of head, initial encounter (principal); W57.XXXA Bitten or stung by nonvenomous insect and other nonvenomous arthropods, initial encounter

== ENCOUNTER 2021-10-27 08:46 | Emergency (ER) | payer MEDICARE ==
[~2021-10-27] VITALS: Ht 177 cm; Wt 100.0 kg
[~2021-10-27 08:46] MED LIST changes: +AMOX-355 PO; +DIPH25CA79 PO; +FAMO-119 PO; +PRD20T PO
[2021-10-27] MEDS ORDERED: cefTRIAXone 1,000 MG VIAL IM STA (08:59)
[2021-10-27] MEDS ORDERED: LIDOCAINE 1% INJ 50 ML (XYLOCAINE) VIAL IJ STA (08:59)
[2021-10-27 09:01] VITALS: BP 166/88
[2021-10-27] MEDS ORDERED: AMOX1TAB12 PO (09:07)
--- NOTE | 2021-10-27 09:07 | ED EENT ---
History of Present Illness General Chief Complaint: Dental Problems/Pain Stated Complaint: RT FACIAL SWELLING Source: patient History of Present Illness Date Seen by Provider: Oct 27, 2021 Time Seen by Provider: 08:49 Initial Comments 80-year-old male presenting with complaints of swelling and pain to the right cheek x1 week. He states that he also has an area of swelling and tenderness along his gums in the same area. He does wear a partial denture that is rubbing against that area. He denies any fever, chills, nausea, vomiting, headache, trauma to his face. He had increased pain overnight and took Tylenol this morning for the pain. That has decreased his pain to 1 or 2 out of 10. He denies having symptoms like this previously. Timing/Duration: abrupt Severity: moderate Location: facial (Right cheek) Prearrival Treatment: over the counter meds Modifying Factors: Worse With Lying Down Associated Symptoms: No change in hearing, No cough, No drooling, No ear drain age; facial pain/swelling; No fever, No malaise, No nasal congestion/drainage, No poor fluid intake, No poor solids intake, No sinus infection, No sore throat, No tooth pain, No voice change Allergies and Home Medications Allergies Coded Allergies: Sulfa (Sulfonamide Antibiotics) (Verified Allergy, Unknown, 04/04/19) Patient Home Medication List Home Medication List Reviewed: Yes Amlodipine Besylate (Norvasc) 10 Mg Tablet, 10 MG PO DAILY Prescribed by: KEM MERCEDES on 05/31/19 165 Amoxicillin/Potassium Clav (Augmentin 500-125 Tablet) 500 Mg-125 Mg Tablet, 1 EACH PO BID Prescribed by: QUOC DEY MD on 09/03/211856 Amoxicillin/Potassium Clav (Amox Tr-K Clv 875-125 mg Tab) 875 Mg-125 Mg Tablet, 1 EACH PO BID Prescribed by: BENNETT GUO on 10/27/21 0907 Diphenhydramine HCl (Benadryl) 25 Mg Capsule, 25 MG PO BID Prescribed by: QUOC DEY MD on 09/03/211856 Famotidine (Pepcid) 20 Mg Tablet, 20 MG PO BID Prescribed by: QUOC DEY MD on 09/03/211856 Prednisone (Prednisone) 20 Mg Tab, 40 MG PO DAILY Prescribed by: QUOC DEY MD on 09/03/21 9003 Review of Systems Review of Systems Constitutional: No chills, No fever Eyes: Denies Blurred Vision, Denies Photophobia, Denies Vision Changes Ears: No Symptoms Reported Nose: no symptoms reported Mouth: see HPI Throat: no symptoms reported Respiratory: no symptoms reported Cardiovascular: no symptoms reported Gastrointestinal: no symptoms reported Musculoskeletal: no symptoms reported Skin: see HPI Neurological: No Symptoms Reported Past Vgzjhsv-Iwfyfm-Dfvldy Hx Patient Social History Tobacco Use?: No Use of E-Cig and/or Vaping dev: No Substance use?: No Alcohol Use?: No Immunizations Up To Date First/Initial COVID19 Vaccinat: Yes Second COVID19 Vaccination Fritz: Yes Seasonal Allergies Seasonal Allergies: Yes Past Medical History Surgery/Hospitalization HX: HTN; Pacemaker; High Cholesterol; Hypothyroidism Surgeries: Yes Pacemaker, Transurethral Resection Respiratory: Yes Asthma Cardiac: Yes (Sick sinus syndrome) High Cholesterol, Hypertension, Irregular Heartbeat Neurological: No Genitourinary: Yes Benign Prostatic Hyperpl Gastrointestinal: No Musculoskeletal: No Endocrine: Yes Hypothyroidsim HEENT: No Cancer: No Psychosocial: No Integumentary: No Blood Disorders: No Physical Exam Vital Signs Vital Signs - First Documented 10/27/21 09:01 Temp 35.8 Pulse 80 Resp 18 B/P (MAP) 166/88 (114) Pulse Ox 95 O2 Delivery Room Air Height, Weight, BMI Height: '" Weight: lbs. oz. kg; 31.00 BMI Method: General Appearance: WD/WN, no apparent distress Eyes: bilateral eye normal inspection, bilateral eye PERRL, bilateral eye EOMI Nose: normal inspection Mouth/Throat: dental tenderness (Tender to the right upper gumline), other (Mild tenderness and swelling to the right upper cheek) Neck: non-tender, full range of motion, supple, normal inspection Cardiovascular: normal peripheral pulses, regular rate, rhythm Respiratory: chest non-tender, lungs clear, normal breath sounds, no respiratory distress, no accessory muscle use Neurologic/Psychiatric: alert, oriented x 3 Skin: normal color, warm/dry Progress/Results/Core Measures Results/Orders My Orders Orders - BENNETT GUO MD Ceftriaxone (Rocephin) (10/27/21 08:59) Lidocaine 1% Inj 50 Ml (Xylocaine 1% Inj (10/27/21 08:59) Vital Signs/I&O 10/27/21 09:01 Temp 35.8 Pulse 80 Resp 18 B/P (MAP) 166/88 (114) Pulse Ox 95 O2 Delivery Room Air Progress Progress Note : Progress Note With tenderness and swelling to the right gumline and upper cheek will treat with antibiotics for possible dental infection. Give 1 g Rocephin IM injection here in the ED and continue with Augmentin. Follow-up with clinic or dentist if not improving within next 3 to 4 days Departure Impression Primary Impression: Dental abscess Additional Impression: Cheek swelling Disposition: HOME, SELF-CARE Condition: Stable Departure-Patient Inst. Decision time for Depature: 09:06 Referrals: JUNITO MCGEE MD (PCP) Primary Care Physician Patient Instructions: Tooth Abscess ED, Dental Pain ED Add. Discharge Instructions: Take full course of antibiotics to treat for infection with tooth/gums. If not seeing improvement by Friday or Friday check with Dentist or your PCP. Continue with Acetaminophen or Ibuprofen if needed for pain All discharge instructions reviewed with patient and/or family. Voiced understanding. Scripts Amoxicillin/Potassium Clav (Amox Tr-K Clv 875-125 mg Tab) 875 Mg-125 Mg Tablet 1 EACH PO BID for Facial Swelling/tooth abscess for 10 Days, #20 TAB 0 Refills Prov: BENNETT GUO MD 10/27/21 BENNETT GUO MD Oct 27, 2021 09:07
== END 2021-10-27 09:15 | disposition home or self-care (01) ==
LOC: EDUNIT# 08:46 → ER FS 08:48
DX: K04.7 Periapical abscess without sinus (principal); R22.0 Localized swelling, mass and lump, head; Z88.2 Allergy status to sulfonamides
CPT/HCPCS: 99284